=== PATIENT | female | born 1990 | race Caucasian/White ===

== ENCOUNTER 2019-10-25 19:23 | Emergency (ER) | payer SELFPAY ==
[2019-10-25] MEDS ORDERED: Ketorolac 30 MG/ML SDV IVPUSH ONE (20:57)
[2019-10-25] MEDS ORDERED: Ondansetron 4 MG/2 ML SDV IVPUSH ONE (20:57)
[2019-10-25] MEDS ORDERED: Metoclopramide 10 MG/2 ML SDV IV ONE (20:57)
[2019-10-25] MEDS ORDERED: Sodium Chloride 0.9% 1,000 ML IV ONE (20:57)
[2019-10-25] MEDS ORDERED: diphenhydrAMINE 50 MG/ML SDV IVPUSH ONE (20:57)
[2019-10-25] MEDS ORDERED: LORazepam 2 MG/ML SDV IVPUSH ONE (20:58)
--- NOTE | 2019-10-25 20:58 | EDM.PDOC ---
ED HPI GENERAL MEDICAL PROBLEM - General Chief Complaint: General Stated Complaint: MIGRAINE Time Seen by Provider: 10/25/19 20:55 Source of Information: Reports: Patient History Limitations: Reports: No Limitations - History of Present Illness INITIAL COMMENTS - FREE TEXT/NARRATIVE: HISTORY AND PHYSICAL: History of present illness: Patient is a 29-year-old female who presents to the emergency room with complaints of headache which she describes as a tight wrapping sensation around her scalp and behind her eyes. She states she does have associated nausea with this. She has tried Tylenol and ibuprofen without much relief. She denies any previous history of migraines or frequent headaches. Patient does have reported elevated blood pressure on today's visit, she said that she has had high blood pressure previous but was associated with . She states since she has had her tubes tied and has no chance of . Patient denies any fever, chills, headache, change in vision, syncope or near syncope. Denies any chest pain, back pain, shortness of breath or cough. Denies any abdominal pain, vomiting, diarrhea, constipation or dysuria. Patient has been eating and drinking appropriately. Review of systems: As per history of present illness and below otherwise all systems reviewed and negative. Past medical history: As per history of present illness and as reviewed below otherwise noncontributory. Surgical history: As per history of present illness and as reviewed below otherwise noncontributory. Social history: See social history for further information Family history: As per history of present illness and as reviewed below otherwise noncontributory. Physical exam: General: Well-developed and well-nourished 29-year-old female. Alert and oriented. Nontoxic-appearing and in no acute distress. HEENT: Atraumatic, normocephalic, pupils equal and reactive bilaterally, negative for conjunctival pallor or scleral icterus, mucous membranes moist, TMs normal bilaterally, throat clear, neck supple, nontender, trachea midline. No drooling or trismus noted. No meningeal signs. No hot potato voice noted. Lungs: Clear to auscultation, breath sounds equal bilaterally, chest nontender. Heart: S1S2, regular rate and rhythm without overt murmur Abdomen: Soft, nondistended, nontender. Negative for masses or hepatosplenomegaly. Negative for costovertebral tenderness. Skin: Intact, warm, dry. No lesions or rashes noted. Extremities: Atraumatic, moves all extremities per self without difficulty or deficits, negative for cords or calf pain. Neurovascular unremarkable. Neuro: Awake, alert, oriented. Cranial nerves II through XII unremarkable. Cerebellum unremarkable. Motor and sensory unremarkable throughout. Exam nonfocal. Notes: Head CT is negative. Patient does feel somewhat improved after the IV fluids and medications. We discussed her high blood pressure. She states over the past week she has been monitoring it intermittently and it has been "high" with readings of 150s over 100. We discussed treating this but she would need to follow-up with her primary care provider for reevaluation and further management. Supportive care measures were reviewed and discussed. Voices understanding and is agreeable to plan of care. Denies any further questions or concerns at this time. Diagnostics: CT Therapeutics: IV fluids, Toradol, Zofran, Ativan Prescription: None Impression: Tension Headache Uncontrolled HTN Plan: 1. Please do not drive for the remainder of the day. The medication received does cause drowsiness. 2. You can alternate Tylenol and ibuprofen if needed for pain management. Drinking plenty of fluids. 3. Continue to monitor your blood pressure, once daily (keep record for your follow up appointment) 4. Follow-up with your primary care provider as we discussed. Return to the ED as needed and as discussed. Definitive disposition and diagnosis as appropriate pending reevaluation and review of above. Headache Pain Score (Numeric/FACES): 9 - Related Data Allergies Allergy/AdvReac Type Severity Reaction Status Date / Time No Known Allergies Allergy Verified 10/25/19 20:16 Home Meds: Home Meds . [No Known Home Meds] 10/25/19 [History] Past Medical History HEENT History: Reports: None Cardiovascular History: Reports: None Respiratory History: Reports: None Gastrointestinal History: Reports: None Genitourinary History: Reports: None Other DATA INTEGRATION ARCHITECT History: 3 C sections Musculoskeletal History: Reports: None Neurological History: Reports: None Psychiatric History: Reports: None Endocrine/Metabolic History: Reports: None Hematologic History: Reports: None Immunologic History: Reports: None Oncologic (Cancer) History: Reports: None Dermatologic History: Reports: None - Infectious Disease History Infectious Disease History: Reports: None - Past Surgical History Head Surgeries/Procedures: Reports: None Social & Family History - Tobacco Use Smoking Status *Q: Current Every Day Smoker Years of Tobacco use: 12 Packs/Tins Daily: 1.5 - Caffeine Use Caffeine Use: Reports: Coffee, Soda - Recreational Drug Use Recreational Drug Use: No ED ROS GENERAL - Review of Systems Review Of Systems: Comprehensive ROS is negative, except as noted in HPI. ED EXAM, GENERAL - Physical Exam Exam: See Below (See dictation) Course - Vital Signs Last Recorded V/S: Last Vital Signs Temp 96.8 F 10/25/19 22:40 Pulse 75 10/25/19 22:40 Resp 18 10/25/19 22:40 BP 135/84 10/25/19 22:40 Pulse Ox 98 10/25/19 22:40 - Orders/Labs/Meds Meds: Medications Discontinued Medications Generic Name Dose Route Start Last Admin Trade Name Angelq PRN Reason Stop Dose Admin Diphenhydramine HCl 50 mg 10/25/19 20:57 10/25/19 21:55 Benadryl IVPUSH 10/25/19 20:58 Not Given ONETIME ONE Sodium Chloride 1,000 mls @ 999 mls/hr 10/25/19 20:57 10/25/19 21:44 Normal Saline IV 10/25/19 21:57 999 mls/hr STAT ONE Administration Ketorolac Tromethamine 30 mg 10/25/19 20:57 10/25/19 21:46 Toradol IVPUSH 10/25/19 20:58 30 mg ONETIME ONE Administration Lisinopril 10 mg 10/25/19 22:00 10/25/19 22:08 Prinivil PO 10 mg DAILY ARCENIO Administration Lorazepam 1 mg 10/25/19 20:58 10/25/19 21:49 Ativan IVPUSH 10/25/19 20:59 1 mg ONETIME ONE Administration Metoclopramide HCl 10 mg 10/25/19 20:57 10/25/19 21:55 Reglan IV 10/25/19 20:58 Not Given ONETIME ONE Ondansetron HCl 4 mg 10/25/19 20:57 10/25/19 21:44 Zofran IVPUSH 10/25/19 20:58 4 mg ONETIME ONE Administration Departure - Departure Time of Disposition: 22:02 Disposition: Home, Self-Care 01 Clinical Impression: Tension headache, Uncontrolled hypertension - Discharge Information Instructions: Tension Headache, Adult, [id number] Referrals: PCP,None [Primary Care Provider] - Forms: ED Department Discharge Additional Instructions: The following information is given to patients seen in the emergency department who are being discharged to home. This information is to outline your options for follow-up care. We provide all patients seen in our emergency department with a follow-up referral. The need for follow-up, as well as the timing and circumstances, are variable depending upon the specifics of your emergency department visit. If you don't have a primary care physician on staff, we will provide you with a referral. We always advise you to contact your personal physician following an emergency department visit to inform them of the circumstance of the visit and for follow-up with them and/or the need for any referrals to a consulting specialist. The emergency department will also refer you to a specialist when appropriate. This referral assures that you have the opportunity for follow-up care with a specialist. All of these measure are taken in an effort to provide you with optimal care, which includes your follow-up. Under all circumstances we always encourage you to contact your private physician who remains a resource for coordinating your care. When calling for follow-up care, please make the office aware that this follow-up is from your recent emergency room visit. If for any reason you are refused follow-up, please contact the [facility] Emergency Department at and asked to speak to the emergency department charge nurse. [facility] [address] [place] [id number] [id number] [address] for the remainder of the day. The medication received does cause drowsiness. 2. You can alternate Tylenol and ibuprofen if needed for pain management. Drinking plenty of fluids. 3. Continue to monitor your blood pressure, once daily (keep record for your follow up appointment) 4. Follow-up with your primary care provider as we discussed. Return to the ED as needed and as discussed. . Sepsis Event Note - Evaluation Sepsis Screening Result: No Definite Risk - Focused Exam Date Exam was Performed: 11/01/19 Time Exam was Performed: 10:16
--- NOTE | 2019-10-25 21:56 | CT ---
INDICATION: Headache for 1 week TECHNIQUE: CT Head without i.v. contrast. COMPARISON: None FINDINGS: CSF space: The ventricles are normal for age. Brain: No evidence of mass, acute infarction or hemorrhage is seen. No mass-effect or midline shift is seen. The brain parenchyma is otherwise normal in appearance with preservation of the marshall-white matter junction. Calvarium: The visualized paranasal sinuses are well aerated. The mastoid air cells are clear. The visualized orbits are grossly unremarkable. The calvarium is unremarkable in appearance with no fractures identified. IMPRESSION: 1. No evidence of acute infarction, intracranial hemorrhage, or mass-effect seen. Please note that all CT scans at this facility use dose modulation, iterative reconstruction, and/or weight-based dosing when appropriate to reduce radiation dose to as low as reasonably achievable. Dictated by: Bonifacio Low MD @ 10/25/2019 21:54:48 (Electronically Signed)
[2019-10-25] MEDS ORDERED: Lisinopril 10 MG Tab PO SCH (22:00)
== END 2019-10-25 22:52 | disposition home or self-care (01) ==
LOC: MW.ED 19:23
DX: G44.209 Tension-type headache, unspecified, not intractable (principal); I10 Essential (primary) hypertension; F17.210 Nicotine dependence, cigarettes, uncomplicated
CPT/HCPCS: 70450; 96361; 96374; 96375; 99284; A9270; J1885; J2060; J2405; J7030; 99283